=== PATIENT | female | born 1950 | race Caucasian/White ===

== ENCOUNTER 2020-10-25 10:06 | Outpatient (CLI) | payer MEDICARE | END 2020-10-25 10:07 | disposition home or self-care (01) | LOC: CSHMAMMO 10:06 | PROVIDERS: ATTEND Internal Medicine | DX: Z12.31 Encounter for screening mammogram for malignant neoplasm of breast (principal); Z78.0 Asymptomatic menopausal state; M81.0 Age-related osteoporosis without current pathological fracture | CPT/HCPCS: 77063; 77067; 77080 ==

== ENCOUNTER 2021-09-30 15:00 | Outpatient (CLI) | payer MEDICARE | END 2021-09-30 15:01 | disposition home or self-care (01) | LOC: CSHULT 15:00 | PROVIDERS: ATTEND Internal Medicine | DX: N39.0 Urinary tract infection, site not specified (principal); N28.1 Cyst of kidney, acquired | CPT/HCPCS: 76770 ==

== ENCOUNTER 2021-11-04 14:13 | Outpatient (CLI) | payer MEDICARE | END 2021-11-04 14:14 | disposition home or self-care (01) | LOC: CSHMAMMO 14:13 | PROVIDERS: ATTEND Internal Medicine | DX: Z12.31 Encounter for screening mammogram for malignant neoplasm of breast (principal) | CPT/HCPCS: 77063; 77067 ==

== ENCOUNTER 2021-11-10 08:59 | Outpatient (CLI) | payer MEDICARE | END 2021-11-10 09:00 | disposition home or self-care (01) | LOC: CSHRAD 08:59 | PROVIDERS: ATTEND Urology | DX: N39.0 Urinary tract infection, site not specified (principal) | CPT/HCPCS: 51600; 74455 ==